=== PATIENT | female | born 1995 | race Caucasian/White ===

== ENCOUNTER 2022-08-26 18:06 | Emergency (ER) | payer OTHER, SELFPAY ==
--- NOTE | ~2022-08-26 | US_ITS ---
EXAMINATION: US ABDOMEN LIMITED CLINICAL INFORMATION: Right upper quadrant pain. COMPARISON: None TECHNIQUE: Real-time imaging of the right upper quadrant abdominal viscera. FINDINGS: PANCREAS: Normal. LIVER: Normal. The liver is normal in size. The liver contour is normal. Parenchymal echogenicity is normal. No focal hepatic lesion. There is no intrahepatic biliary duct dilatation seen. GALLBLADDER: The gallbladder is contracted in this nonfasting patient limiting its evaluation. No pericholecystic free fluid noted. Negative Vincent's sign. COMMON BILE DUCT: Normal in caliber measuring 0.2 cm in diameter. RIGHT KIDNEY: There is a 1.4 x 0.9 x 1.2 cm cyst in the interpolar region with a thin internal septation and some internal debris. No hydronephrosis or renal calculi. The kidney measures 11 cm in maximum dimension. FREE FLUID: None. US/US abdomen limited IMPRESSION: 1. Limited evaluation of the gallbladder due to contraction in this nonfasting patient. No significant pericholecystic free fluid and negative Ivncent's sign, arguing against an acute process such as acute cholecystitis. However, given limitations of the examination, a repeat ultrasound after fasting or correlation with a CT could be obtained if clinically deemed appropriate. 2. There is a 1.4 cm cyst in the right kidney with a thin internal septation and internal debris, almost certainly representing a proteinaceous/hemorrhagic simple cyst in a patient of this age. However, out of caution a follow-up ultrasound in 6-12 months could be obtained to reassess.
--- NOTE | 2022-08-26 18:09 | ED_ITS ---
HPI - Abdominal Pain General Chief Complaint: Abdominal Pain <Merari Luque CNP - Last Filed: 08/26/22 18:17> Stated Complaint: Abdominal pain <Merari Luque CNP - Last Filed: 08/26/22 18:17> Time Seen by Provider: 08/26/22 22:21 <Merari Luque CNP - Last Filed: 08/26/22 18:17> Source: patient and family () <Farzaneh Villanueva MD - Last Filed: 08/26/22 2 3:55> Mode of arrival: ambulatory <Farzaneh Villanueva MD - Last Filed: 08/26/22 23:55> History of Present Illness HPI narrative: 27-year-old female who comes in with complaints of right lower quadrant abdominal pain that is exacerbated by eating and has been ongoing for approximately 2 weeks and has been associated with some nausea but denies any fever, chills, dysuria, diarrhea. Patient states her LMP is 2 weeks ago. <Farzaneh Villanueva MD - Last Filed: 08/26/22 23:55> Related Data Home Medications: Previous Rx's Medication Instructions Recorded amoxicillin 875 mg-potassium 1 tab PO BID 5 days #10 tabs 08/26/22 clavulanate 125 mg tablet <Merari Luque CNP - Last Filed: 08/26/22 18:17> Allergies/Adverse Reactions: Allergies Allergy/AdvReac Type Severity Reaction Status Date / Time beef derived (bovine) Allergy Unknown Verified 08/26/22 18:13 <Merari Luque CNP - Last Filed: 08/26/22 18:17> Review of Systems Review of Systems Pertinent positives and negatives as stated in HPI <Farzaneh Villanueva MD - Last Filed: 08/26/22 23:55> PMFSH Past Medical History Source: nursing notes reviewed <Farzaneh Villanueva MD - Last Filed: 08/26/22 23:55> Social History Social History: Social History Advance Directives: No <Merari Luque CNP - Last Filed: 08/26/22 18:17> Physical Exam ED Vital Signs: Vital Signs - 24 hr 08/26/22 18:10 Temperature 96.9 F Pulse Rate 86 Respiratory Rate 16 Blood Pressure 124/48 L Pulse Oximetry 100 Oxygen Delivery Method Room Air BMI result Body Mass Index 20.2 <Merari Luque CNP - Last Filed: 08/26/22 18:17> Vital Signs - 24 hr 08/26/22 18:10 Temperature 96.9 F Pulse Rate 86 Respiratory Rate 16 Blood Pressure 124/48 L Pulse Oximetry 100 Oxygen Delivery Method Room Air BMI result Body Mass Index 20.2 VITAL SIGNS: Reviewed. GENERAL: Well developed, well nourished, in no acute distress. HEAD: Normocephalic/atraumatic EYES: PERRLA, EOMI LUNGS: Normal breath sounds. No adventitious sounds or accessory muscle use. SpO2<100> CARDIOVASCULAR: Regular rate and rhythm without noted murmurs ABDOMEN: Soft, no significant discomfort, non-distended with bowel sounds. MUSCULOSKELETAL: No tenderness, deformities, or effusions noted on gross inspection. EXTREMITIES: No cyanosis, clubbing or edema. SKIN: Inspection of the skin reveals no rashes NEUROLOGIC: Alert and oriented x 4. Strength and sensation to light touch were grossly intact x 4. <Farzaneh Villanueva MD - Last Filed: 08/26/22 23:55> Course Course Course Narrative: This is an RME: Additional HPI, ROS, PE not included below will be deferred to primary provider. Patient is a 27-year-old female who presents emergency department. She is complaining of abdominal pain, RUQ/ epigastric pain that occurs every time that she is eating, at times is described as severe. Has been ongoing for the past 2 weeks. Denies fevers, chills, nausea, vomiting, genitourinary symptoms Plan: Labs, UA, urine preg, ultrasound right upper quadrant <Merari Luque CNP - Last Filed: 08/26/22 18:17> Medical Decision Making Medical Decision Making MDM Narrative: 27-year-old female with history and clinical presentation after review of all investigations my interpretation is as patient has a cystitis, there is no evidence to support ovarian torsion/appendicitis/obstruction/ectopic and other findings are inconsistent with acute cholecystitis, renal colic. Patient will receive combination analgesics and initial antibiotics here in the emergency room. She was informed of all findings and encouraged to continue outpatient management follow-up with primary care provider and will be discharged with remaining course of antibiotics. <Farzaneh Villanueva MD - Last Filed: 08/26/22 23:55> Differential Diagnosis Please see the discussion above <Farzaneh Villanueva MD - Last Filed: 08/26/22 23:55> Lab Data Please see the discussion above <Farzaneh Villanueva MD - Last Filed: 08/26/22 23:55> Result Diagrams: 08/26/22 19:26 08/26/22 19:26 <Merari Luque CNP - Last Filed: 08/26/22 18:17> Labs: Lab Results 08/26/22 08/26/22 08/26/22 Range/Units 19:26 19:26 22:44 WBC 7.4 (4.8-10.8) X10*3/uL RBC 3.97 L (4.20-5.50) X10*6/uL Hgb 11.5 L (12.0-16.0) g/dl Hct 35.0 L (37.0-47.0) % MCV 88.2 (80.0-98.0) fL MCH 29.0 (27.0-33.0) pg MCHC 32.9 (31.0-35.0) g/dl RDW 12.2 (11.0-16.0) % Plt Count 179 (160-400) X10*3/uL MPV 11.0 (9.4-12.3) fL Immature Gran % (Auto) 0.1 (0.0-0.4) % Neut % (Auto) 57.6 (45-73) % Lymph % (Auto) 29.0 (20-40) % [place] % (Auto) 11.4 H (2-11) % Eos % (Auto) 1.5 (0-4) % Baso % (Auto) 0.4 (0-2) % Lymph # (Auto) 2.2 (1.2-4.9) X10*3/uL [place] # (Auto) 0.9 (0.1-1.2) X10*3/uL Eos # (Auto) 0.1 (0.0-0.4) X10*3/uL Baso # (Auto) 0.0 (0.0-0.2) X10*3/uL Abs Immat Gran (auto) 0.01 (0.00-0.03) X10*3/uL Absolute Neuts (auto) 4.3 (2.0-8.3) x10*3/uL Absolute Nucleated RBC 0.000 (0.0-0.012) X10*3/uL Nucleated RBC % (auto) 0.0 (0.0-0.2) /100WBC Sodium 138 (135-145) mmol/L Potassium 4.0 (3.3-5.1) mmol/L Chloride 106 (96-108) mmol/L Carbon Dioxide 27 (22-29) mmol/L Anion Gap 9 L (12-20) BUN 13 (9-16) mg/dL Creatinine 0.74 (0.5-1.4) mg/dL Estim Creat Clear Calc 94.5 Estimated GFR > 60 Random Glucose 99 (60-115) mg/dL Calcium 8.8 (8.4-10.2) mg/dL Total Bilirubin 0.6 (0.0-1.0) mg/dL AST 15 (5-31) U/L ALT 12 (0-31) U/L Alkaline Phosphatase 47 (39-117) U/L Total Protein 6.7 (6.5-8.0) g/dL Albumin 4.3 (3.5-5.0) g/dL Lipase 25 (8-78) U/L Beta HCG, Quant < 2 mIU/mL Urine Color Yellow Urine Appearance Clear Urine pH 7.0 (5.0-9.0) Ur Specific [place] 1.015 (1.005-1.025) Urine Protein Negative (Neg-Trace) mg/dL Urine Glucose (UA) Negative (Negative) mg/dL Urine Ketones Negative (Negative) mg/dL Urine Blood Negative (Negative) Urine Nitrite Negative (Negative) Ur Leukocyte Esterase Small (1+) H (Negative) Urine RBC 3-5 H (0-2) /HPF Urine WBC 0-5 (0-5) /HPF Ur Squamous Epith Cells 6-10 (0-2) /HPF Urine Bacteria None Seen (None Seen) Hyaline Casts 0-2 (0-2) /LPF Urine Test (NEGATIVE) 08/26/22 Range/Units 22:45 WBC (4.8-10.8) X10*3/uL RBC (4.20-5.50) X10*6/uL Hgb (12.0-16.0) g/dl Hct (37.0-47.0) % MCV (80.0-98.0) fL MCH (27.0-33.0) pg MCHC (31.0-35.0) g/dl RDW (11.0-16.0) % Plt Count (160-400) X10*3/uL MPV (9.4-12.3) fL Immature Gran % (Auto) (0.0-0.4) % Neut % (Auto) (45-73) % Lymph % (Auto) (20-40) % [place] % (Auto) (2-11) % Eos % (Auto) (0-4) % Baso % (Auto) (0-2) % Lymph # (Auto) (1.2-4.9) X10*3/uL [place] # (Auto) (0.1-1.2) X10*3/uL Eos # (Auto) (0.0-0.4) X10*3/uL Baso # (Auto) (0.0-0.2) X10*3/uL Abs Immat Gran (auto) (0.00-0.03) X10*3/uL Absolute Neuts (auto) (2.0-8.3) x10*3/uL Absolute Nucleated RBC (0.0-0.012) X10*3/uL Nucleated RBC % (auto) (0.0-0.2) /100WBC Sodium (135-145) mmol/L Potassium (3.3-5.1) mmol/L Chloride (96-108) mmol/L Carbon Dioxide (22-29) mmol/L Anion Gap (12-20) BUN (9-16) mg/dL Creatinine (0.5-1.4) mg/dL Estim Creat Clear Calc Estimated GFR Random Glucose (60-115) mg/dL Calcium (8.4-10.2) mg/dL Total Bilirubin (0.0-1.0) mg/dL AST (5-31) U/L ALT (0-31) U/L Alkaline Phosphatase (39-117) U/L Total Protein (6.5-8.0) g/dL Albumin (3.5-5.0) g/dL Lipase (8-78) U/L Beta HCG, Quant mIU/mL Urine Color Urine Appearance Urine pH (5.0-9.0) Ur Specific [place] (1.005-1.025) Urine Protein (Neg-Trace) mg/dL Urine Glucose (UA) (Negative) mg/dL Urine Ketones (Negative) mg/dL Urine Blood (Negative) Urine Nitrite (Negative) Ur Leukocyte Esterase (Negative) Urine RBC (0-2) /HPF Urine WBC (0-5) /HPF Ur Squamous Epith Cells (0-2) /HPF Urine Bacteria (None Seen) Hyaline Casts (0-2) /LPF Urine Test NEGATIVE (NEGATIVE) <Merari Luque CNP - Last Filed: 08/26/22 18:17> Lab Results 08/26/22 08/26/22 08/26/22 Range/Units 19:26 19:26 22:44 WBC 7.4 (4.8-10.8) X10*3/uL RBC 3.97 L (4.20-5.50) X10*6/uL Hgb 11.5 L (12.0-16.0) g/dl Hct 35.0 L (37.0-47.0) % MCV 88.2 (80.0-98.0) fL MCH 29.0 (27.0-33.0) pg MCHC 32.9 (31.0-35.0) g/dl RDW 12.2 (11.0-16.0) % Plt Count 179 (160-400) X10*3/uL MPV 11.0 (9.4-12.3) fL Immature Gran % (Auto) 0.1 (0.0-0.4) % Neut % (Auto) 57.6 (45-73) % Lymph % (Auto) 29.0 (20-40) % [place] % (Auto) 11.4 H (2-11) % Eos % (Auto) 1.5 (0-4) % Baso % (Auto) 0.4 (0-2) % Lymph # (Auto) 2.2 (1.2-4.9) X10*3/uL [place] # (Auto) 0.9 (0.1-1.2) X10*3/uL Eos # (Auto) 0.1 (0.0-0.4) X10*3/uL Baso # (Auto) 0.0 (0.0-0.2) X10*3/uL Abs Immat Gran (auto) 0.01 (0.00-0.03) X10*3/uL Absolute Neuts (auto) 4.3 (2.0-8.3) x10*3/uL Absolute Nucleated RBC 0.000 (0.0-0.012) X10*3/uL Nucleated RBC % (auto) 0.0 (0.0-0.2) /100WBC Sodium 138 (135-145) mmol/L Potassium 4.0 (3.3-5.1) mmol/L Chloride 106 (96-108) mmol/L Carbon Dioxide 27 (22-29) mmol/L Anion Gap 9 L (12-20) BUN 13 (9-16) mg/dL Creatinine 0.74 (0.5-1.4) mg/dL Estim Creat Clear Calc 94.5 Estimated GFR > 60 Random Glucose 99 (60-115) mg/dL Calcium 8.8 (8.4-10.2) mg/dL Total Bilirubin 0.6 (0.0-1.0) mg/dL AST 15 (5-31) U/L ALT 12 (0-31) U/L Alkaline Phosphatase 47 (39-117) U/L Total Protein 6.7 (6.5-8.0) g/dL Albumin 4.3 (3.5-5.0) g/dL Lipase 25 (8-78) U/L Beta HCG, Quant < 2 mIU/mL Urine Color Yellow Urine Appearance Clear Urine pH 7.0 (5.0-9.0) Ur Specific [place] 1.015 (1.005-1.025) Urine Protein Negative (Neg-Trace) mg/dL Urine Glucose (UA) Negative (Negative) mg/dL Urine Ketones Negative (Negative) mg/dL Urine Blood Negative (Negative) Urine Nitrite Negative (Negative) Ur Leukocyte Esterase Small (1+) H (Negative) Urine RBC 3-5 H (0-2) /HPF Urine WBC 0-5 (0-5) /HPF Ur Squamous Epith Cells 6-10 (0-2) /HPF Urine Bacteria None Seen (None Seen) Hyaline Casts 0-2 (0-2) /LPF Urine Test (NEGATIVE) 08/26/22 Range/Units 22:45 WBC (4.8-10.8) X10*3/uL RBC (4.20-5.50) X10*6/uL Hgb (12.0-16.0) g/dl Hct (37.0-47.0) % MCV (80.0-98.0) fL MCH (27.0-33.0) pg MCHC (31.0-35.0) g/dl RDW (11.0-16.0) % Plt Count (160-400) X10*3/uL MPV (9.4-12.3) fL Immature Gran % (Auto) (0.0-0.4) % Neut % (Auto) (45-73) % Lymph % (Auto) (20-40) % [place] % (Auto) (2-11) % Eos % (Auto) (0-4) % Baso % (Auto) (0-2) % Lymph # (Auto) (1.2-4.9) X10*3/uL [place] # (Auto) (0.1-1.2) X10*3/uL Eos # (Auto) (0.0-0.4) X10*3/uL Baso # (Auto) (0.0-0.2) X10*3/uL Abs Immat Gran (auto) (0.00-0.03) X10*3/uL Absolute Neuts (auto) (2.0-8.3) x10*3/uL Absolute Nucleated RBC (0.0-0.012) X10*3/uL Nucleated RBC % (auto) (0.0-0.2) /100WBC Sodium (135-145) mmol/L Potassium (3.3-5.1) mmol/L Chloride (96-108) mmol/L Carbon Dioxide (22-29) mmol/L Anion Gap (12-20) BUN (9-16) mg/dL Creatinine (0.5-1.4) mg/dL Estim Creat Clear Calc Estimated GFR Random Glucose (60-115) mg/dL Calcium (8.4-10.2) mg/dL Total Bilirubin (0.0-1.0) mg/dL AST (5-31) U/L ALT (0-31) U/L Alkaline Phosphatase (39-117) U/L Total Protein (6.5-8.0) g/dL Albumin (3.5-5.0) g/dL Lipase (8-78) U/L Beta HCG, Quant mIU/mL Urine Color Urine Appearance Urine pH (5.0-9.0) Ur Specific [place] (1.005-1.025) Urine Protein (Neg-Trace) mg/dL Urine Glucose (UA) (Negative) mg/dL Urine Ketones (Negative) mg/dL Urine Blood (Negative) Urine Nitrite (Negative) Ur Leukocyte Esterase (Negative) Urine RBC (0-2) /HPF Urine WBC (0-5) /HPF Ur Squamous Epith Cells (0-2) /HPF Urine Bacteria (None Seen) Hyaline Casts (0-2) /LPF Urine Test NEGATIVE (NEGATIVE) <Farzaneh Villanueva MD - Last Filed: 08/26/22 23:55> Radiology Impression Radiologist Impression: My interpretation is in agreement with radiology's impression of the imaging study. <Farzaneh Villanueva MD - Last Filed: 08/26/22 23:55> Discharge Plan Discharge Clinical Impression: Abdominal discomfort, UTI (urinary tract infection), Renal cyst, acquired, right <Merari Luque CNP - Last Filed: 08/26/22 18:17> Patient Disposition: Home, Self-Care <Merari Luque CNP - Last Filed: 08/26/22 18:17> Instructions: Urinary Tract Infection in Women (ED), Abdominal Pain (ED) <Merari Luque CNP - Last Filed: 08/26/22 18:17> Additional Instructions: 1. Please complete the entire course of antibiotics as ordered. 2. Tylenol 1000 mg, orally, every 6 hours as needed for pain control. Do not exceed 4000 mg within 24 hours. 3. Your home medication that you use during your menstrual periods can be used together with the Tylenol for improved symptom relief. 4. I am giving you a referral to follow-up with urology for ultrasound findings of a kidney cyst that will need repeat ultrasound in 6 months. Please call on Monday morning. I have copied the information below. US/US abdomen limited IMPRESSION: 1.? Limited evaluation of the gallbladder due to contraction in this nonfasting patient. No significant pericholecystic free fluid and negative Vincent's sign, arguing against an acute process such as acute cholecystitis. However, given limitations of the examination, a repeat ultrasound after fasting or correlation with a CT could be obtained if clinically deemed appropriate. 2.? There is a 1.4 cm cyst in the right kidney with a thin internal septation and internal debris, almost certainly representing a proteinaceous/hemorrhagic simple cyst in a patient of this age. However, out of caution a follow-up ultrasound in 6-12 months could be obtained to reassess. Return to the ER for any worsening symptoms. <Merari Luque CNP - Last Filed: 08/26/22 18:17> Prescriptions: New amoxicillin-pot clavulanate 875-125 mg tablet 1 tab PO BID 5 Days Qty: 10 0RF <Merari Luque CNP - Last Filed: 08/26/22 18:17> Referrals: Breonna Geiger MD [Physician] - (27F, no fevers or chills. US/US abdomen limited IMPRESSION: 1. Limited evaluation of the gallbladder due to contraction in this nonfasting patient. No significant pericholecystic free fluid and negative Vincent's sign, arguing against an acute process such as acute cholecystitis. However, given limitations of the examination, a repeat ultrasound after fasting or correlation with a CT could be obtained if clinically deemed appropriate. 2. There is a 1.4 cm cyst in the right kidney with a thin internal septation and internal debris, almost certainly representing a proteinaceous/hemorrhagic simple cyst in a patient of this age. However, out of caution a follow-up ultrasound in 6-12 months could be obtained to reassess.) <Merari Luque CNP - Last Filed: 08/26/22 18:17>
[2022-08-26 18:10] VITALS: BP 124/48; PULSE 86; RESP 16; TEMP 36.1; O2SAT 100; BMI 20.2
[2022-08-26 19:30] LABS: MANUAL DIFF FLAG NO
[2022-08-26 19:31] LABS: Basophils Percent Auto 0.4 % (0-2); Eosinophils Absolute Auto 0.1 X10*3/uL (0.0-0.4); Eosinophils Percent Auto 1.5 % (0-4); Hemoglobin 11.5 g/dl (12.0-16.0); Imm Gran Abs Auto 0.01 X10*3/uL (0.00-0.03); Imm Gran Pct Auto 0.1 % (0.0-0.4); Lymphocytes Absolute Auto 2.2 X10*3/uL (1.2-4.9); Mean Corpuscular HGB Conc 32.9 g/dl (31.0-35.0); Mean Corpuscular Volume 88.2 fL (80.0-98.0); Monocytes Absolute Auto 0.9 X10*3/uL (0.1-1.2); Monocytes Percent Auto 11.4 % (2-11); Neutrophils Absolute Auto 4.3 x10*3/uL (2.0-8.3); Neutrophils Percent Auto 57.6 % (45-73); Platelet Count 179 X10*3/uL (160-400); Red Blood Count 3.97 X10*6/uL (4.20-5.50); Red Cell Distribution Width 12.2 % (11.0-16.0); White Blood Count 7.4 X10*3/uL (4.8-10.8)
[2022-08-26 19:51] LABS: Alanine Aminotransferase 12 U/L (0-31); Albumin Level 4.3 g/dL (3.5-5.0); Alkaline Phosphatase 47 U/L (39-117); Anion Gap 9 (12-20); Aspartate Amino Transferase 15 U/L (5-31); Bilirubin Total 0.6 mg/dL (0.0-1.0); Blood Urea Nitrogen 13 mg/dL (9-16); Calcium 8.8 mg/dL (8.4-10.2); Carbon Dioxide 27 mmol/L (22-29); Chloride 106 mmol/L (96-108); Creatinine Clr Calc Pharmacy 94.5; Estimated Glomerular Filt Rate > 60; Glucose Random 99 mg/dL (60-115); Lipase 25 U/L (8-78); Sodium 138 mmol/L (135-145); Total Protein 6.7 g/dL (6.5-8.0)
[2022-08-26 22:44] LABS: HCG Quantitative < 2 mIU/mL
[2022-08-26 22:56] LABS: UPreg QC Valid YES; Urine Pregnancy NEGATIVE (NEGATIVE)
[2022-08-26 22:57] LABS: Appearance Urine Clear; Color Urine Yellow; Glucose Urine UA Negative (Negative); Leukocyte Esterase Urine Small (1+) (Negative); Nitrite Urine Negative (Negative); Specific Gravity - Urine 1.015 (1.005-1.025); UMIC TRIGGER UACC YES; Urine Blood Negative (Negative); Urine Ketones Negative (Negative); Urine Protein Negative (Neg-Trace)
[2022-08-26 23:14] LABS: Bacteria Urine None Seen (None Seen); Hyaline Casts Urine 0-2 /LPF (0-2); UACC Culture Trigger YES; WBC Urine 0-5 /HPF (0-5)
[2022-08-26] MEDS: Ibuprofen 400 MG TABLET PO (23:56)
[2022-08-26] MEDS: Amoxicillin/Potassium Clav 875 MG TABLET PO (23:56)
== END 2022-08-27 00:01 | disposition home or self-care (01) ==
PROVIDERS: Nurse Practitioner Family; Emergency Provider Student in an Organized Health Care Education/Training Program
DX: R10.31 Right lower quadrant pain (principal); N39.0 Urinary tract infection, site not specified; N28.1 Cyst of kidney, acquired; Z79.899 Other long term (current) drug therapy
CPT/HCPCS: 36415; 76705; 80053; 81001; 81003; 81025; 83690; 84702; 85025; 87086; 99283; 99284